=== PATIENT | male | born 1990 | race Caucasian/White ===

== ENCOUNTER 2022-05-01 09:24 | Emergency (ER) | payer BC, SELFPAY ==
[2022-05-01 09:40] VITALS: BP 110/66; PULSE 58; RESP 12; TEMP 36.5; O2SAT 100
--- NOTE | 2022-05-01 10:07 | ED.URI ---
HPI - URI/Sore Throat General Chief Complaint: Upper Respiratory Infection Stated Complaint: sore throat Time Seen by Provider: 05/01/22 09:55 Source: patient, RN notes reviewed and old records reviewed Mode of arrival: ambulatory Limitations: no limitations History of Present Illness HPI Narrative: 31-year-old male who presents to [facility] care with complaints of sore throat for 3 to 4-day duration especially on the left side with left lymphadenopathy noted. Patient reports he has been taking DayQuil and ibuprofen for his symptoms, has had ill contacts.Patient reports that he has had 1 dose of COVID vaccine, no flu shot taken. Patient reports that his throat is especially sore on the left side and also has pain to his left neck area which is swollen in his gland. Patient denies any nausea or vomiting. MD elicited complaint: sore throat Onset (ago): day(s) (3-4 days) Pain scale (0-10): 6 Able to tolerate fluids by mouth: Yes Treatments prior to arrival: ibuprofen and other (DayQuil) Related Data Allergies Allergy/AdvReac Type Severity Reaction Status Date / Time No Known Allergies Allergy Verified 05/01/22 09:44 Review of Systems Review of Systems: CONSTITUTIONAL: Reports malaise, chills, sweats, or fever. EYES: Denies visual changes, redness, or discharge. ENT: Reports rhinorrhea, congestion, no sinus pain, otalgia, positive for sore throat left side. CARDIOVASCULAR: Denies chest pain, palpitations, or edema. RESPIRATORY: No reported cough.? Denies dyspnea. GASTROINTESTINAL: Denies abdominal pain, nausea, vomiting, diarrhea SKIN: Denies rash or itching. MUSCULOSKELETAL: Denies myalgia. NEUROLOGIC: Denies headache. All systems reviewed & are unremarkable except as noted in HPI and below PMFSH Past Medical History Medical History ADHD Anxiety Depression GERD (gastroesophageal reflux disease) Surgical History Surgical History No history of previous surgery Social History Social History (Updated 05/01/22 @ 10:06 by Alba Starkey NP) Smoking packs per day: 0.5 Smoking cigarettes per day: 10.0 Smoking status: Current every day smoker Alcohol intake: current Substance use: former Substance use type: former substance user, heroin and opiates Last use: will be clean for 1 year May 22 Gender identity (if verbalized by the patient): Male Comments At time of signature, agree with nursing past medical, surgical, social and family history. There is no relevant family history pertinent to the presenting complaint Exam Narrative: GENERAL: Well-appearing, well-nourished, and in no acute distress. HEAD: Normocephalic EYES: PERRLA, conjunctivae clear ENT: Nares clear, turbinates edematous and erythematous, clear discharge. Mucous membranes moist. TM pearly siu with dull light reflex bilaterally; no tragal tenderness. Oropharynx erythematous with white lesions on left tonsil. Tonsils are enlarged , no drooling, no hoarseness, no trismus, uvula midline. NECK: Supple.left sided lymphadenopathy CHEST: Clear to auscultation, breath sounds equal. No wheezing, rhonchi, rales, or stridor. No respiratory distress, speaks in full sentences.SAO2 100% on room air HEART: Regular rate and rhythm. No murmur heard. SKIN: Warm, dry, no rash. NEURO: Alert and oriented x3. PSYCH: Normal mood and affect Course Course Emergency Course: Patient is aware of diagnosis, understands and agrees to treatment plan.? Anticipatory guidance given.? Patient agrees to follow-up as directed and is aware of reasons to seek care at the emergency department. Portions of this record may have been created with voice recognition software Level of Care: Express Care Visit Vital Signs Vital signs: Vital Signs Temperature 36.5 C 05/01/22 09:40 Pulse Rate 58 L 05/01/22 09:40 Respiratory R
== END 2022-05-01 10:33 | disposition home or self-care (01) ==
PROVIDERS: Emergency Provider Registered Nurse
DX: J03.90 Acute tonsillitis, unspecified (principal); F17.210 Nicotine dependence, cigarettes, uncomplicated; K21.9 Gastro-esophageal reflux disease without esophagitis
CPT/HCPCS: 87081; 87880; 99213; G0463

== ENCOUNTER 2023-02-05 15:42 | Emergency (ER) | payer BC, SELFPAY ==
--- NOTE | 2023-02-05 15:45 | ED.DENTAL ---
HPI - Dental/Oral General Chief complaint: Dental/Oral Stated complaint: tooth issue right side Time Seen by Provider: 02/05/23 16:01 Mode of arrival: ambulatory Limitations: no limitations History of Present Illness HPI Narrative: 32-year-old male presents with concern for right lower dental pain. Reports he broke a tooth off several months ago, he has began having pain the last 2 days. He reports the pain is on his jaw goes from his ear to close to the chin. He denies fever, headache, trouble swallowing. MD Complaint: tooth pain Related Data Home Medications Medication Instructions Recorded Confirmed quetiapine 100 mg tablet mg 02/05/23 Allergies Allergy/AdvReac Type Severity Reaction Status Date / Time No Known Allergies Allergy Verified 02/05/23 15:51 Review of Systems Review of Systems: CONSTITUTIONAL: Denies malaise, chills, sweats, or fever. EYES: Denies visual changes ENT: Denies rhinorrhea, congestion, sinus pain, otalgia or sore throat. Reports right lower dental pain CARDIOVASCULAR: Denies chest pain, palpitations RESPIRATORY: Denies cough or dyspnea. SKIN: Denies rash or itching. MUSCULOSKELETAL: Denies myalgia. NEUROLOGIC: Denies numbness, weakness, or headache. All systems reviewed & are unremarkable except as noted in HPI and below PMFSH Past Medical History Medical History ADHD Anxiety Depression GERD (gastroesophageal reflux disease) Surgical History Surgical History No history of previous surgery Social History Social History (Updated 05/01/22 @ 10:06 by Alba Starkey NP) Smoking packs per day: 0.5 Smoking cigarettes per day: 10.0 Smoking status: Current every day smoker Alcohol intake: current Substance use: former Substance use type: former substance user, heroin and opiates Last use: will be clean for 1 year May 22 Gender identity (if verbalized by the patient): Male Comments At time of signature, agree with nursing past medical, surgical, social and family history. There is no relevant family history pertinent to the presenting complaint Exam Narrative: GENERAL: Well-appearing, well-nourished, and in no acute distress. HEAD: Normocephalic, atraumatic. EYES: PERRLA, sclera clear ENT: Nares clear, turbinates pink, no rhinorrhea or epistaxis. Mucous membranes moist. TM pearly siu with sharp light reflex bilaterally; no tragal tenderness. Oropharynx without erythema or lesions. Tonsils not enlarged and without exudate. Missing teeth, broken teeth, caries noted, no gingival abscess, no jaw swelling NECK: Supple. No lymphadenopathy. CHEST: No respiratory distress. Speaks in full sentences. HEART: Regular rate and rhythm. SKIN: Warm, dry, no visible rash. NEURO: Alert and oriented x3. PSYCH: Normal mood and affect Course Course Emergency Course: Patient is aware of diagnosis, understands and agrees to treatment plan. Anticipatory guidance given. Patient agrees to follow-up as directed and is aware of reasons to seek care at the emergency department. Portions of this record may have been created with voice recognition software Level of Care: Express Care Visit Vital Signs Vital signs: Reviewed. MDM - Dental/Oral MDM Narrative Medical decision making narrative: Patients pain and complaint coupled with physical findings are consistant with dentalgia. There are no focal signs of space occupying lesions that are compromising to the airway; no dysphagia, odynophagia, dysphonia, or dyspnea. No uvular deviation or soft palate edema. Patient is non-toxic appearing. The floor of the mouth is soft with no signs of Maurisio's Angina; no induration below mandible, no neck pain. Patient is without trismus or drooling and able to swallow secretions. Patient is felt appropriate for discharge home with dental follow up. Differenti
[2023-02-05 15:52] VITALS: BP 120/70; PULSE 60; RESP 14; TEMP 36.4; O2SAT 98
== END 2023-02-05 16:09 | disposition home or self-care (01) ==
PROVIDERS: Emergency Provider Nurse Practitioner; PCP Family Medicine
DX: K08.89 Other specified disorders of teeth and supporting structures (principal); K21.9 Gastro-esophageal reflux disease without esophagitis; F17.210 Nicotine dependence, cigarettes, uncomplicated
CPT/HCPCS: 99213; G0463

== ENCOUNTER 2023-03-03 17:01 | Emergency (ER) | payer BC, SELFPAY ==
[2023-03-03 17:08] VITALS: BP 120/60; PULSE 64; RESP 16; TEMP 36.7; O2SAT 98
--- NOTE | 2023-03-03 17:08 | ED.DENTAL ---
HPI - Dental/Oral General Chief complaint: Dental/Oral Stated complaint: Dental Pain Time Seen by Provider: 03/03/23 17:08 Source: patient Mode of arrival: ambulatory Limitations: no limitations History of Present Illness HPI Narrative: Vikash is a 32-year-old male patient presenting to the clinic today with complaints of dental pain x1 day. He reports he was seen here 3 weeks ago for dental pain and was given prescription for Augmentin and tramadol. States he has finished the Augmentin and has been taking Tylenol Motrin as needed for the pain. Reports that the tooth broke off more this morning when he was trying to take some food out of it. Has a dentist appointment on April 04. Pain rating 9/10 currently. Related Data Allergies Allergy/AdvReac Type Severity Reaction Status Date / Time No Known Allergies Allergy Verified 03/03/23 17:09 Review of Systems Review of Systems: Pertinent positives per HPI. Patient denies any fever, chills, rash, headache, visual changes, dizziness, cough, shortness of breath, chest pain, palpitations, nausea, vomiting, diarrhea, constipation, abdominal pain, or any urinary issues. PMFSH Past Medical History Medical History ADHD Anxiety Depression GERD (gastroesophageal reflux disease) Surgical History Surgical History No history of previous surgery Social History Social History Smoking packs per day: 0.5 Smoking cigarettes per day: 10.0 Smoking status: Current every day smoker Alcohol intake: current Substance use: former Substance use type: former substance user, heroin and opiates Last use: will be clean for 1 year May 22 Gender identity (if verbalized by the patient): Male Comments At the time of my signature, I reviewed and agree with the nursing past medical, surgical, social, and family history. There is no relevant family history pertinent to the patient complaint. Exam Narrative: General: Well-developed, well nourished, in no apparent distress Head: Normocephalic, atraumatic Eyes: Pupils equally round and reactive to light bilaterally, EOM intact, sclera and conjunctive clear, no discharge, lids normal Ears: TMs intact and clear, ear canals clear, no drainage, grossly hearing normal. Nose: Nares patent, no discharge, no inflammation, no sinus tenderness. Mouth: Oral pharynx without lesions or masses, poor dentition, MMM. Broken tooth number 19-with dental decay and redness to the gums Neck: Supple, trachea midline, no enlargement of anterior or posterior cervical nodes, no thyroid masses or goiter palpable. Cardio: Regular rate and rhythm, s1 and s2 normal, no murmur appreciated. Resp: Clear to auscultation bilaterally, no rhonchi, rales, wheezing or rubs Course Course Emergency Course: Portions of this record may have been created with voice recognition software. Level of Care: Express Care Visit Vital Signs Vital signs: Vital signs reviewed Procedures Other Procedure Procedure 1: Other Procedure: Verbal consent was obtained for a inferior alveolar dental block to the right to lower jaw. Risk and benefits explained to the patient he voiced understanding. 5 mL of lidocaine with epi was then injected into the cheek to create a inferior alveolar block. Patient's pain improved significantly after injection. Patient's pain down to a 3/10 after block completed MDM - Dental/Oral MDM Narrative Medical decision making narrative: At the time of visit patient is resting comfortably on the exam table. Offer to do an inferior alveolar dental block and patient agreed. 5 mL of lidocaine with epi was injected into the cheek for inferior alveolar dental block. Patient tolerated procedure well. Pain improved after block. Supportive measures wer
[2023-03-03 17:09] VITALS: BP 120/60; PULSE 64; RESP 16; TEMP 36.7
== END 2023-03-03 17:35 | disposition home or self-care (01) ==
PROVIDERS: Emergency Provider Nurse Practitioner Family
DX: K02.9 Dental caries, unspecified (principal); F17.210 Nicotine dependence, cigarettes, uncomplicated; K21.9 Gastro-esophageal reflux disease without esophagitis
CPT/HCPCS: 64999; 99213; G0463

== ENCOUNTER 2024-10-20 14:10 | Emergency (ER) | payer BC, SELFPAY ==
--- NOTE | 2024-10-20 14:12 | ED.DENTAL ---
HPI - Dental/Oral General Chief complaint: Dental/Oral Stated complaint: Dental Pain Time Seen by Provider: 10/20/24 14:17 Source: patient, RN notes reviewed and old records reviewed Mode of arrival: ambulatory Limitations: no limitations History of Present Illness HPI Narrative: 34-year-old male presents to the [facility] with left upper and lower dental pain, reports left lower dental gingiva swelling. States that started on , 5 days ago. Related Data Home Medications ?Medication ?Instructions ?Recorded ?Confirmed ?Last Taken ?Type buprenorphine 5.7 mg-naloxone 1.4 tablet sublingual 10/20/24 Unknown History mg sublingual tablet (Zubsolv) dextroamphetamine-amphetamine ER PO 10/20/24 Unknown History 20 mg 24hr capsule,extend release diazepam 5 mg tablet mg 10/20/24 Unknown History quetiapine 200 mg tablet mg 10/20/24 Unknown History quetiapine 25 mg tablet mg 10/20/24 Unknown History Allergies Allergy/AdvReac Type Severity Reaction Status Date / Time No Known Allergies Allergy Verified 10/20/24 14:12 Review of Systems Review of Systems: All systems reviewed & are unremarkable except as noted in HPI and below Constitutional: Constitutional: Reports no additional constitutional complaints ENT: Reports as per HPI and Reports dental pain Cardiovascular: Cardiovascular: Reports no additional cardiovascular complaints, Denies chest pain and Denies dyspnea Respiratory: Respiratory: Reports no additional respiratory complaints, Denies chest congestion, Denies cough and Denies dyspnea Musculoskeletal: Musculoskeletal: Reports no additional musculoskeletal complaints Integumentary/Breasts: Skin/Breast: Reports system reviewed and no additional complaints, except as docu PMFSH Past Medical History Medical History Depression ADHD Anxiety GERD (gastroesophageal reflux disease) Surgical History Surgical History No history of previous surgery Social History Social History Smoking packs per day: 0.5 Smoking cigarettes per day: 10.0 Smoking status: Current every day smoker Alcohol intake: current Substance use: former Substance use type: former substance user, heroin and opiates Last use: will be clean for 1 year May 22 Gender identity (if verbalized by the patient): Male Comments At the time of my signature, I reviewed and agree with the nursing past medical, surgical, social, and family history. There is no relevant family history pertinent to the patient complaint. Exam Const: General: cooperative, healthy appearing, comfortable, no acute distress, well developed, alert and well nourished Nutritional Appearance: well nourished Orientation/consciousness: patient oriented x3 Limitations: no limitations HENMT: Head: normal to inspection Ears: hearing grossly normal bilaterally, external ears normal, TM's normal bilaterally, EAC's normal, mastoids normal and no periauricular adenopathy Mouth: Yes lip normal and Yes tongue normal Teeth and gingiva: caries and poor dentition Throat: posterior oropharynx normal, uvula midline and no uvular edema Eyes: General: appearance normal, both eyes and all related structures Alignment and Position: alignment normal Neck: Neck: normal visual inspection, full ROM, no lymphadenopathy and no meningeal signs Chest: Chest palpation & inspection: normal inspection of the chest Resp: Effort & Inspection: normal respiratory effort and able to speak in complete sentences Auscultation: clear to auscultation bilaterally, no crackles, no rales, no rhonchi and no wheezes Cardio: Rate: regular rate Skin: General skin exam: normal color and no rashes or lesions noted Neuro: General: patient oriented x3, gait normal, moves all extremities and no meningeal signs Cognition (Neuro): normal cognition Speech: normal speech Gait exam (Neuro): Normal gait present Extrem: General: normal to inspection, full ROM, capillary refill normal and normal gait Psych: Appearance: grossly normal and well kempt Mental Status: mental status grossly normal Speech and movement: Normal speech and movement present and Clear speech present Affect: normal affect Attitude: cooperative Course Course Level of Care: Express Care Visit Vital Signs Vital signs: Vital Signs Temperature 97.8 F 10/20/24 14:17 Pulse Rate 58 L 10/20/24 14:17 Respiratory Rate 20 10/20/24 14:17 Blood Pressure 109/60 10/20/24 14:17 Pulse Oximetry 100 10/20/24 14:17 Oxygen Delivery Room Air 10/20/24 14:17 Temperature 97.8 F 10/20/24 14:17 Pulse Rate 58 L 10/20/24 14:17 Respiratory Rate 20 04/08/25 14:17 Blood Pressure 109/60 10/20/24 14:17 Pulse Oximetry 100 10/20/24 14:17 Oxygen Delivery Room Air 10/20/24 14:17 Reviewed MDM - Dental/Oral MDM Narrative Medical decision making narrative: Patient sitting comfortably in exam room. Nontoxic, vitals stable. Patient presents with left upper and lower dental pain, reports left lower dental swelling. Very poor dentition, multiple fractured teeth, multiple caries noted. Multiple missing teeth Concern for infection to the left lower posterior gingiva. Will cover with antibiotic, list of dental providers given Patient appropriate for outpatient treatment with close follow-up Discharge instructions reviewed with patient, as well as provided in writing per nursing staff. The instructions also include specific and strict return/GO TO THE ER as well as f/u information. All questions have been answered, and the patient deny any further questions with discharge and discharge plan. Some parts of this dictation were generated by voice recognition software and may contain typographical and/or grammatical inaccuracies. Differential Diagnosis Differential diagnosis: Likely gingival abscess, dental caries, toothache and dental abscess Critical Care Time Critical Care Time Critical Care Time: No Discharge Plan Discharge Clinical Impression: Toothache, Dental decay Patient Disposition: Home Condition: Stable Instructions: Antibiotic Form, Dental Abscess (ED), Toothache (ED) Additional Instructions: Finish the entire course of antibiotics & use mouthwash After every time you eat be sure to use salt water rinses. Apply ice to face to help with pain. Take Tylenol alternating with Motrin as needed for pain. You can alternate every 4 hours You need to follow-up with a dental provider as soon as possible for further evaluation and treatment. A list of dental providers has been given to you Follow up with a Primary Care Provider (PCP) about medical needs. A PCP can help keep you healthy by preventive medicine and screening. Go to the ER for New or worsening symptoms. Patient Language: Azerbaijani Prescriptions: New penicillin V potassium 500 mg tablet 500 mg PO QID 7 Days Qty: 28 0RF No Action quetiapine 25 mg tablet quetiapine 200 mg tablet dextroamphetamine-amphetamine 20 mg capsule,extended release 24hr PO diazepam 5 mg tablet Zubsolv 5.7-1.4 mg tablet, sublingual SUBLINGUAL Follow-up/Referrals: Michael Benton MD [Primary Care Provider] - Stand Alone Forms: Work/School Release IP Time of Disposition: :23
[2024-10-20 14:17] VITALS: BP 109/60; PULSE 58; RESP 20; TEMP 36.6; O2SAT 100
== END 2024-10-20 14:31 | disposition home or self-care (01) ==
PROVIDERS: Emergency Provider Nurse Practitioner; PCP Internal Medicine
DX: K02.9 Dental caries, unspecified (principal); F17.210 Nicotine dependence, cigarettes, uncomplicated; K21.9 Gastro-esophageal reflux disease without esophagitis
CPT/HCPCS: 99213; G0463

== ENCOUNTER 2025-03-10 13:36 | Emergency (ER) | payer BC, SELFPAY ==
[2025-03-10 13:45] VITALS: BP 112/62; PULSE 62; RESP 18; TEMP 36.8; O2SAT 100
--- NOTE | 2025-03-10 13:49 | ED.WOUNDLAC ---
HPI - Wound/Laceration General Chief Complaint: Wound/Laceration Stated Complaint: cut on top of left foot Time Seen by Provider: 03/10/25 13:39 Source: patient Mode of arrival: ambulatory Limitations: no limitations History of Present Illness HPI narrative: Vikash is a 34-year-old male patient presenting to the clinic today with complaints of cut to the top of his left foot. Reports that he noticed 2 days ago that he may have gotten some cement mixed on his sock and this caused an abrasion to the top of his left foot. Area is open with very minimal redness surrounding the site. States he wanted to have it checked out before going back to work. Has been applying triple antibiotic ointment x1 day and then switched Aquaphor. Denies any fevers, chills, body aches. Tetanus is unknown. No drainage from the wound. Related Data Home Medications ?Medication ?Instructions ?Recorded ?Confirmed ?Last Taken ?Type buprenorphine 5.7 mg-naloxone 1.4 tablet sublingual 10/20/24 Unknown History mg sublingual tablet (Zubsolv) dextroamphetamine-amphetamine ER PO 10/20/24 Unknown History 20 mg 24hr capsule,extend release diazepam 5 mg tablet mg 10/20/24 Unknown History quetiapine 200 mg tablet mg 10/20/24 Unknown History quetiapine 25 mg tablet mg 10/20/24 Unknown History Allergies Allergy/AdvReac Type Severity Reaction Status Date / Time No Known Allergies Allergy Verified 03/10/25 13:50 Review of Systems Review of Systems: Pertinent positives per HPI. Patient denies any fever, chills, rash, headache, visual changes, dizziness, cough, runny nose, sore throat, shortness of breath, chest pain, palpitations, nausea, vomiting, diarrhea, constipation, abdominal pain, or any urinary issues. [facility] Past Medical History Medical History Depression ADHD Anxiety GERD (gastroesophageal reflux disease) Surgical History Surgical History No history of previous surgery Social History Social History Smoking packs per day: 0.5 Smoking cigarettes per day: 10.0 Smoking status: Current every day smoker Alcohol intake: current Substance use: former Substance use type: former substance user, heroin and opiates Last use: will be clean for 1 year May 22 Gender identity (if verbalized by the patient): Male Comments At the time of my signature, I reviewed and agree with the nursing past medical, surgical, social, and family history. There is no relevant family history pertinent to the patient complaint. Exam Narrative: General: Well-developed, well nourished, in no apparent distress Head: Normocephalic, atraumatic. Cardio: Regular rate and rhythm, s1 and s2 normal, no murmur appreciated. Resp: Clear to auscultation bilaterally, no rhonchi, rales, wheezing or rubs. Integumentary: [place], warm, and dry, 6 cm abrasion to the top of the left foot without sign of infection. No induration, very minimal tenderness to palpation, no drainage Course Course Emergency Course: Portions of this record may have been created with voice recognition software. Level of Care: Express Care Visit Vital Signs Vital signs: Vital Signs Temperature 36.8 C 03/10/25 13:45 Pulse Rate 62 03/10/25 13:45 Respiratory Rate 18 03/10/25 13:45 Blood Pressure 112/62 03/10/25 13:45 Pulse Oximetry 100 03/10/25 13:45 Oxygen Delivery Room Air 03/10/25 13:45 Temperature 36.8 C 03/10/25 13:45 Pulse Rate 62 03/10/25 13:45 Respiratory Rate 18 03/10/25 13:45 Blood Pressure 112/62 03/10/25 13:45 Pulse Oximetry 100 03/10/25 13:45 Oxygen Delivery Room Air 03/10/25 13:45 Vital signs reviewed MDM - Wound/Laceration MDM Narrative Medical decision making narrative: At the time of visit patient is resting comfortably on the exam table. Patient appears to be nontoxic. Complaints of cut to the top of his left foot. Reports that he noticed 2 days ago that he may have gotten some cement mixed on his sock and this caused an abrasion to the top of his left foot. Area is open with very minimal redness surrounding the site. States he wanted to have it checked out before going back to work. Has been applying triple antibiotic ointment x1 day and then switched Aquaphor. Denies any fevers, chills, body aches. Tetanus is unknown. No drainage from the wound. On exam patient has a 6 cm abrasion to the top of the left foot without sign of infection. Tetanus was ordered Medications: Tdap 0.5 mL IM given in the clinic today. Plan: Abrasion to the top of the left foot. Work note was given. Wound was cleansed and dressed in the clinic today and Tdap was given. Supportive measures were discussed with the patient and they voiced understanding discharge instructions and agrees to treatment plan. Return precautions reviewed Differential Diagnosis Differential diagnosis: Likely laceration, abscess, abrasion and avulsion of skin Discharge Plan Discharge Clinical Impression: Abrasion of foot Qualifiers: Encounter type: initial encounter Laterality: left Qualified Code(s): S90.812A - Abrasion, left foot, initial encounter Patient Disposition: Home Condition: Stable Instructions: Antibiotic Form, Abrasion (ED) Additional Instructions: Wound was cleansed and dressed in the clinic today Tdap 0.5 mL IM given in the clinic today Keep covered if wearing shoes Keep wound clean and dry May continue applying Aquaphor to the wound daily Watch for signs and symptoms of infection- redness, streaking, swelling, purulent discharge, or increase in pain. Follow up with your PCP for a wound check in 2-3 days Patient Language: [place] Prescriptions: No Action quetiapine 25 mg tablet quetiapine 200 mg tablet dextroamphetamine-amphetamine 20 mg capsule,extended release 24hr PO diazepam 5 mg tablet Zubsolv 5.7-1.4 mg tablet, sublingual SUBLINGUAL Follow-up/Referrals: Michael Benton MD [Primary Care Provider, Hospitalist] Stand Alone Forms: Work/School Release IP Time of Disposition: 13:55 Quality NIHSS Nursing Documentation ED NIHSS nursing documentation: reviewed/agree
[2025-03-10] MEDS: TETANUS,DIPHTHERIA,AC PERTUSSIS ADULT (0.5 ML) BOOSTRIX IM (13:55)
== END 2025-03-10 14:08 | disposition home or self-care (01) ==
PROVIDERS: Emergency Provider Nurse Practitioner Family; PCP Internal Medicine
DX: S90.812A Abrasion, left foot, initial encounter (principal); F17.210 Nicotine dependence, cigarettes, uncomplicated; W45.8XXA Other foreign body or object entering through skin, initial encounter; Z23 Encounter for immunization
CPT/HCPCS: 90471; 90715; 99212; G0463